=== PATIENT | male | born 2000 | race Caucasian/White ===

== ENCOUNTER 2021-02-28 21:44 | Emergency (ER) | payer BC ==
[2021-02-28] MEDS ORDERED: Sodium Chloride 0.9% 1,000 ML ONE ×2 (22:15→22:39)
[2021-02-28] MEDS ORDERED: diphenhydrAMINE 50 MG/ML VIAL ONE (22:17)
[2021-02-28] MEDS ORDERED: Dexamethasone 20 MG/5 ML VIAL ONE (22:17)
[2021-02-28] MEDS ORDERED: Ketorolac Tromethamine 30 MG/ML VIAL ONE (22:17)
[2021-02-28] MEDS ORDERED: Ondansetron PF 4 MG/2 ML Vial ONE (22:17)
[2021-02-28] MEDS ORDERED: Metoclopramide HCl 10 MG/2 ML VIAL ONE (22:17)
== END 2021-02-28 23:18 | disposition home or self-care (01) ==
LOC: NAV ERS 21:44
DX: G43.909 Migraine, unspecified, not intractable, without status migrainosus (principal)
CPT/HCPCS: 96374; 96375; J1100; J1200; J1885; J2405; J2765; J7050